=== PATIENT | male | born 1995 ===

== ENCOUNTER 2020-01-08 09:46 | Emergency (ER) | payer OTHER | END 2020-01-08 10:08 | disposition left against medical advice (07) | LOC: ED 09:46 | DX: Z53.21 Procedure and treatment not carried out due to patient leaving prior to being seen by health care provider (principal) ==

== ENCOUNTER 2023-06-28 06:42 | Outpatient (CLI) | payer OTHER ==
--- NOTE | 2023-06-28 16:02 | Ultrasound Report ---
PROCEDURE: Abdomen Limited INDICATIONS: ELEVATED LIVER FUNCTION TESTS TECHNIQUE: Real-time focused scanning was performed of the abdomen, with image documentation. COMPARISONS: None. FINDINGS: Liver: Liver is enlarged with steatosis measuring 17.9 cm. Gallbladder: No stones. Wall thickness is normal measuring 1.5 mm. Biliary ducts: Intrahepatic bile ducts are non-dilated. Extrahepatic bile duct caliber measures 6.3 mm. Normal is 6-7 mm or less in diameter, or 10 mm or less post-cholecystectomy. Pancreas: Visualized portions of the pancreas are sonographically normal. Right kidney: Normal in size and echotexture. Right kidney measures 11.2 cm long. No hydronephrosis or nephrolithiasis. No solid masses. No complex renal cystic lesions which require follow-up. Aorta: Visualized aorta is normal in caliber at less than 3 cm. IVC: Intrahepatic inferior vena cava is patent. Miscellaneous: No free abdominal fluid. IMPRESSION: Hepatomegaly with steatosis. Reviewed by: Cleopatra Butcher MD on 06/28/2023 4:01 PM PDT Approved by: Cleopatra Butcher MD on 06/28/2023 4:01 PM PDT Station ID: [id number]
== END 2023-06-28 06:43 | disposition home or self-care (01) ==
LOC: DI 06:42
PROVIDERS: ATTEND Internal Medicine Gastroenterology
DX: R94.5 Abnormal results of liver function studies (principal); K76.0 Fatty (change of) liver, not elsewhere classified; R16.0 Hepatomegaly, not elsewhere classified